=== PATIENT | male | born 1995 | race Two or more races ===

== ENCOUNTER 2024-02-26 22:13 | Emergency (ER) | payer OTHER ==
[~2024-02-26] VITALS: Ht 190.5 cm; Wt 114.3 kg
[2024-02-26 22:20] VITALS: BP 125/71; O2SAT 99
[2024-02-26] MEDS ORDERED: CLONAZEPAM1 MG (22:22)
[2024-02-26] MEDS ORDERED: LORazepam 2 MG/ML VIAL IM STA ×2 (22:42→22:52)
== END 2024-02-26 22:54 | disposition home or self-care (01) ==
LOC: ER 22:14
DX: F41.8 Other specified anxiety disorders (principal); Z88.0 Allergy status to penicillin

== ENCOUNTER 2024-03-13 22:01 | Emergency (ER) | payer OTHER ==
[~2024-03-13] VITALS: Ht 190.5 cm; Wt 102.1 kg
[~2024-03-13 22:01] MED LIST: CLONAZEPAM1 MG
[2024-03-13] MEDS ORDERED: ZOLOFT25 MG (22:29)
[2024-03-13] MEDS ORDERED: LORazepam 2 MG/ML VIAL IM STA (23:07)
== END 2024-03-13 23:52 | disposition home or self-care (01) ==
LOC: ER 22:03
DX: F41.9 Anxiety disorder, unspecified (principal); Z88.0 Allergy status to penicillin